=== PATIENT | male | born 1995 | race Caucasian/White ===

== ENCOUNTER 2019-10-06 10:17 | Emergency (ER) | payer OTHER ==
[~2019-10-06] VITALS: Ht 175.3 cm; Wt 68.5 kg
--- NOTE | 2019-10-06 10:48 | NUR ---
Pt ambulates from triage to room with steady gait and balance.
[2019-10-06] MEDS ORDERED: OMEP-110 PO (10:56)
[2019-10-06] MEDS ORDERED: CALC200T3 PO (10:56)
[2019-10-06] MEDS ORDERED: FAMOTIDINE 20 MG/2 ML IV ONE (11:00)
[2019-10-06] MEDS ORDERED: SODIUM CHLORIDE FLUSH 10ML SYR IVF ONE (11:00)
[2019-10-06] MEDS ORDERED: ONDANSETRON 2MG/ML, 2ML IVPush ONE (11:00)
[2019-10-06] MEDS ORDERED: FAMOTIDINE 20 MG/2 ML ONE (11:08)
[2019-10-06] MEDS ORDERED: ONDANSETRON 2MG/ML, 2ML ONE (11:08)
--- NOTE | 2019-10-06 11:20 | NUR ---
PIV STARTED AND BLOOD DRAWN. PT MEDICATED PER NOV. [place] [facility] [place] WITHIN REACH. BLOOD PRESSURE CUFF AND CONTINUOUS SPO2 MONITOR APPLIED.
[2019-10-06 11:23] LABS: BASOPHILS # (AUTO) 0.03 x10^3/uL (0-0.1); BASOPHILS % (AUTO) 0 % (0-1); EOSINOPHILS # (AUTO) 1.74 x10^3/uL (0-0.4); EOSINOPHILS % (AUTO) 18 % (1-7); LYMPHOCYTES # (AUTO) 1.02 x10^3/uL (1-3.4); LYMPHOCYTES % (AUTO) 10 % (22-44); MD NO; MEAN CORPUSCULAR HEMOGLOBIN 31.3 pg (27.5-34.5); MEAN CORPUSCULAR HGB CONC 33.2 g/dL (33.2-36.2); MEAN CORPUSCULAR VOLUME 94.3 fL (81-97); MEAN PLATELET VOLUME 8.4 fL (7.4-10.4); MONOCYTES # (AUTO) 0.35 x10^3/uL (0.2-0.8); MONOCYTES % (AUTO) 4 % (2-9); NEUTROPHILS % (AUTO) 68 % (42-75); PLATELET COUNT 227 x10^3/uL (130-400); RED BLOOD COUNT 4.86 x10^6/uL (4.38-5.82)
[2019-10-06 11:32] LABS: ALBUMIN 3.9 g/dL (3.4-5.0); ANION GAP 7 mmol/L (5-15); CALCIUM 8.6 mg/dL (8.5-10.1); CHLORIDE 107 mmol/L (98-107)
[2019-10-06 11:35] LABS: CREATININE 1.12 mg/dL (0.7-1.3)
[2019-10-06 11:36] LABS: ALANINE AMINOTRANSFERASE 23 U/L (12-78); ALKALINE PHOSPHATASE 55 U/L (45-117); BILIRUBIN,TOTAL 0.6 mg/dL (0.2-1.0); TOTAL PROTEIN 6.7 g/dL (6.4-8.2)
--- NOTE | 2019-10-06 12:01 | NUR ---
Pt gone at CT at this time.
[2019-10-06] MEDS ORDERED: OMNIPAQUE 350 MG/ML, 100ML BOTTLE ONE (12:09)
[2019-10-06 12:39] LABS: MICROSCOPIC NOT IND
[2019-10-06 12:45] LABS: CULTURE INDICATED? NO
[2019-10-06] MEDS ORDERED: MAALOX/HYOSCYAMINE/LIDOCAINE 45 ML BTL PO ONE (13:00)
[2019-10-06] MEDS ORDERED: MAALOX/HYOSCYAMINE/LIDOCAINE 45 ML BTL ONE (13:19)
[2019-10-06 13:24] VITALS: BP 129/69
--- NOTE | 2019-10-06 13:58 | NUR ---
Patient given discharge instructions and they have confirmed that they understand the instructions. Patient ambulatory with steady gait. Pt left with d/c paperwork, Rx, and all personal belongings.
== END 2019-10-06 14:00 | disposition home or self-care (01) ==
LOC: ED 11:37
DX: K29.00 Acute gastritis without bleeding (principal)
CPT/HCPCS: 36415; 74177; 80053; 81003; 83690; 85025; 96374; 96375; 99284; J2405; J3490; Q9967